=== PATIENT | female | born 1970 | race Caucasian/White ===

== ENCOUNTER 2018-05-15 19:31 | Emergency (ER) | payer BC ==
[~2018-05-15] VITALS: Wt 97.5 kg
[2018-05-15] MEDS ORDERED: FAMOTIDINE 20 MG TAB PO STA (20:13)
[2018-05-15] MEDS: LIDOCAINE/MYLANTA 40 ML BTL PO STA ×2 (20:35→20:37)
--- NOTE | 2018-05-15 20:52 | ERD ---
ER Documentation Chief Complaint Chief Complaint bib self, cc: abd. pain x 2 hours, after eating HPI 47-year-old female presents with intermittent 1 week right upper quadrant pain. The patient normally eats a vegan diet, however she has noticed pain over the epigastric area which is been associated with food since Friday. She had one episode of vomiting earlier in the week, she denies fever, chest pain, or shortness of breath. She has no prior history of GI surgeries, she took Gas-X which caused some relief. Patient also endorsed to me that she has a history of anxiety, and often has a rapid heart rate. ROS All systems reviewed and are negative except as per history of present illness. Allergies Allergies: Coded Allergies: No Known Allergy (Unverified , 05/15/18) PMhx/Soc Medical and Surgical Hx: pt denies Surgical Hx Hx Psychiatric Problems: Yes (anxiety) Hx Alcohol Use: No Hx Substance Use: No Hx Tobacco Use: No Smoking Status: Never smoker Physical Exam Vitals Vital Signs Date Temp Pulse Resp B/P (MAP) Pulse Ox O2 O2 Flow FiO2 Time Delivery Rate 05/15/18 98.3 116 19 145/65 100 19:36 (91) Physical Exam Const: No acute distress Head: Atraumatic Eyes: Normal Conjunctiva ENT: Normal External Ears, Nose and Mouth. Neck: Full range of motion. No meningismus. Resp: Clear to auscultation bilaterally Cardio: Regular rate and rhythm, no murmurs Abd: Soft, non tender, non distended. Normal bowel sounds Skin: No petechiae or rashes Back: No midline or flank tenderness Ext: No cyanosis, or edema Neur: Awake and alert Psych: Normal Mood and Affect Result Diagram: 05/15/18204105/15/182041 Results 24 hrs Laboratory Tests Test 05/15/18 20:41 05/15/18 20:42 05/15/18 20:43 05/15/18 20:44 Prothrombin 12.8 Sec Time Prothrombin 1.0 Time Ratio INR 0.95 International Normalized Rati o White Blood 9.5 10^3/ul Count Red Blood Count 4.41 10^6/ul Hemoglobin 11.2 g/dl Hematocrit 36.1 % Mean 81.9 fl Corpuscular Volume Mean 25.4 pg Corpuscular Hemoglobin Mean 31.0 g/dl Corpuscular Hemoglobin Conc ent Red Cell 13.8 % Distribution Width Platelet Count 424 10^3/UL Mean Platelet 10.0 fl Volume Immature 0.300 % Granulocytes % Neutrophils % 78.3 % Lymphocytes % 11.3 % Monocytes % 8.9 % Eosinophils % 0.8 % Basophils % 0.4 % Nucleated Red 0.0 /100WBC Blood Cells % Immature 0.030 10^3/ul Granulocytes # Neutrophils # 7.4 10^3/ul Lymphocytes # 1.1 10^3/ul Monocytes # 0.9 10^3/ul Eosinophils # 0.1 10^3/ul Basophils # 0.0 10^3/ul Nucleated Red 0.0 10^3/ul Blood Cells # Sodium Level 140 mmol/L Potassium Level 4.3 mmol/L Chloride Level 104 mmol/L Carbon Dioxide 28 mmol/L Level Anion Gap 8 Blood Urea 13 mg/dl Nitrogen Creatinine 0.78 mg/dl Est Glomerular > 60 mL/min Filtrat Rate mL/min Glucose Level 159 mg/dl Calcium Level 9.3 mg/dl Total Bilirubin 0.3 mg/dl Direct 0.00 mg/dl Bilirubin Indirect 0.3 mg/dl Bilirubin Aspartate Amino 193 IU/L Transf (AST/SGO T) Alanine 98 IU/L Aminotransferas e (ALT/SGPT) Alkaline 131 IU/L Phosphatase Troponin I < 0.012 ng/ml Total Protein 7.8 g/dl Albumin 4.0 g/dl Globulin 3.80 g/dl Albumin/Globuli 1.05 n Ratio Lipase 98 U/L Urine Color YELLOW Urine Clarity CLEAR Urine pH 7.0 Urine Specific 1.018 [place] Urine Ketones NEGATIVE mg/dL Urine Nitrite NEGATIVE mg/dL Urine Bilirubin NEGATIVE mg/dL Urine 2+ mg/dL Urobilinogen Urine Leukocyte TRACE Yun/ul Esterase Urine 9 /HPF Microscopic RBC Urine 7 /HPF Microscopic WBC Urine 1+ mg/dL Hemoglobin Urine Glucose NEGATIVE mg/dL Urine Total NEGATIVE mg/dl Protein POC Beta HCG, NEGATIVE Qualitative Current Medications Medications Dose Sig/Kuldeep Start Time Status Last (Trade) Ordered Route PRN Stop Time Admin Dose Reason Admin Famotidine 20 mg ONCE STAT 05/15/18 DC 05/15/18 (Pepcid) PO 20:13 20:35 05/15/18 20:16 40 ml ONCE STAT 05/15/18 DC Miscellaneous PO 20:13 Medication 05/15/18 (Gi Cocktail 20:16 (2)) Procedures/MDM 47-year-old female presents for evaluation of epigastric pain, which is intermittent. Patient has no peritoneal signs on abdominal exam, she is afebrile and nontoxic-appearing. Ultrasound showed gallstones, without evidence of acute cholecystitis, I suspect she most likely has biliary colic, patient pain was controlled in the ED, at this point she is stable for discharge home, at discharge she was in no acute distress. Strict return precautions were given for fever, vomiting, or any worsening symptoms. Chest X-ray 1V Interpreted by me: Soft Tissue: No acute abnormalities Bones: No acute abnormalities Mediastinum/Cardiac Silhouette/Lungs: No acute abnormalities EKG: Rate/Rhythm: Sinus tachycardia QRS, ST, T-waves: No changes consistent w/ acute ischemia Impression: No evidence of ischemia or arrhythmia Departure Diagnosis: Primary Impression: Abdominal pain Abdominal location: epigastric Qualified Codes: R10.13 - Epigastric pain Additional Impression: Biliary colic Condition: Stable CATINA GUILLEN MD May 15, 2018 20:52
[2018-05-15 22:54] VITALS: BP 132/70; PULSE 102; RESP 15
== END 2018-05-15 22:54 | disposition home or self-care (01) ==
LOC: E/R 19:31 → MERGE 19:31 → E/R 22:54
DX: K80.50 Calculus of bile duct without cholangitis or cholecystitis without obstruction (principal)
CPT/HCPCS: 36415; 71045; 76705; 80053; 81001; 81025; 83690; 84484; 85025; 85610